=== PATIENT | female | born 1935 | race Caucasian/White ===

== ENCOUNTER 2016-12-16 09:30 | Outpatient (RCR) | payer MEDICARE, OTHER ==
[2016-12-15 10:53] VITALS: BP 135/82; PULSE 70; TEMP 98.1
[~2016-12-16] VITALS: Ht 160 cm; Wt 50.9 kg
[2016-12-16 09:55] VITALS: BP 124/47; PULSE 64; TEMP 97.7
[2016-12-16] MEDS ORDERED: PRIL40 PO (11:34)
[2016-12-16] MEDS ORDERED: MIRALAX 255 GM255 GM PO (11:34)
[2016-12-16] MEDS ORDERED: CORDARONE200 MG/TAB PO (11:35)
[2016-12-16] MEDS ORDERED: ASPIRIN E.C. 8181 MG PO (11:35)
[2016-12-16] MEDS ORDERED: CARTIA XT120 MG PO (11:35)
[2016-12-16] MEDS ORDERED: LASIX 20MG TABL20 MG PO (11:36)
[2016-12-16] MEDS ORDERED: ELIQUIS 2.5 PO (11:36)
[2016-12-16] MEDS ORDERED: MUCINEX1200 MG PO (11:37)
[2016-12-16] MEDS ORDERED: ZOCOR 40MG40 MG PO (11:37)
[2016-12-16] MEDS ORDERED: K-DUR20 MEQ PO (11:38)
[2016-12-16] MEDS ORDERED: VITAMIN D32000 I1 PO (11:39)
[2016-12-16] MEDS ORDERED: BENADRYL25 M2 PO (11:39)
[2016-12-16] MEDS ORDERED: FERROUS SU325 MG/TAB PO (11:40)
[2016-12-16] MEDS ORDERED: ZOLOFT 50MG50 MG PO (11:40)
[2016-12-16] MEDS ORDERED: ZYLOPRIM 300MG300 MG PO (11:40)
[2016-12-16] MEDS ORDERED: RT ADVAIR 228 DISKUS IH (11:41)
[2016-12-16] MEDS ORDERED: RT SPIRIVA18 MCG IH (11:42)
[2016-12-16] MEDS ORDERED: VENTOLIN0.09 MG IH (11:42)
[2016-12-16] MEDS ORDERED: NASONEX SPRAY17 GM NS (11:45)
[2016-12-16] MEDS ORDERED: BROVANA15 MCG/2 M IH (11:45)
[2016-12-16] MEDS ORDERED: ALLEGRA 180MG180 MG PO (11:45)
[2016-12-16] MEDS ORDERED: CALCIUM 600MG+D1 TAB PO (11:46)
[2016-12-16] MEDS ORDERED: OMEGA-3 1000 MG1 CAP PO (11:47)
[2016-12-16] MEDS ORDERED: COSAMIN DS 4001 TAB PO (11:47)
[2016-12-16] MEDS ORDERED: MULTIPLE VITAMI1 CAP PO (11:48)
== END 2016-12-16 11:48 | disposition home or self-care (01) ==
LOC: EUO 09:30
DX: C34.12 Malignant neoplasm of upper lobe, left bronchus or lung (principal); Z45.2 Encounter for adjustment and management of vascular access device
CPT/HCPCS: C1751; J1644

== ENCOUNTER → 2017-01-05 | Outpatient (REF) ==
[~2017-01-05] MED LIST: ALLEGRA 180MG180 MG PO; ASPIRIN E.C. 8181 MG PO; BENADRYL25 M2 PO; BROVANA15 MCG/2 M IH; CALCIUM 600MG+D1 TAB PO; CARTIA XT120 MG PO; CORDARONE200 MG/TAB PO; COSAMIN DS 4001 TAB PO; ELIQUIS 2.5 PO; FERROUS SU325 MG/TAB PO; K-DUR20 MEQ PO; LASIX 20MG TABL20 MG PO; MIRALAX 255 GM255 GM PO; MUCINEX1200 MG PO; MULTIPLE VITAMI1 CAP PO; NASONEX SPRAY17 GM NS; OMEGA-3 1000 MG1 CAP PO; PRIL40 PO; RT ADVAIR 228 DISKUS IH; RT SPIRIVA18 MCG IH; VENTOLIN0.09 MG IH; VITAMIN D32000 I1 PO; ZOCOR 40MG40 MG PO; ZOLOFT 50MG50 MG PO; ZYLOPRIM 300MG300 MG PO
== END ==
LOC: ZAIV 06:10
DX: Z09 Encounter for follow-up examination after completed treatment for conditions other than malignant neoplasm (principal)